=== PATIENT | female | born 1945 | race Caucasian/White ===

== ENCOUNTER 2019-06-27 11:34 | Emergency (ER) | payer MEDICARE, BC ==
[~2019-06-27] VITALS: Ht 160 cm; Wt 65.9 kg
[2019-06-27 12:06] VITALS: Ht 160 cm; Wt 65.9 kg
[2019-06-27] MEDS ORDERED: NORVASC5 MG PO (12:07)
[2019-06-27] MEDS ORDERED: PRAVACHOL40 MG PO (12:08)
[2019-06-27] MEDS ORDERED: PLAVIX75 MG PO (12:08)
[2019-06-27] MEDS ORDERED: FERROUS SULFAT325 MG PO (12:08)
[2019-06-27] MEDS ORDERED: VITAMIN D5000 UNI3 PO (12:09)
[2019-06-27] MEDS ORDERED: ULTRAM50 MG PO (12:34)
[2019-06-27 13:46] VITALS: BP 173/78
== END 2019-06-27 13:49 | disposition home or self-care (01) ==
LOC: D.ER 11:34
DX: S52.502A Unspecified fracture of the lower end of left radius, initial encounter for closed fracture (principal); S00.83XA Contusion of other part of head, initial encounter; W01.10XA Fall on same level from slipping, tripping and stumbling with subsequent striking against unspecified object, initial encounter; Y93.9 Activity, unspecified; Y92.9 Unspecified place or not applicable; M79.602 Pain in left arm; M79.18 Myalgia, other site

== ENCOUNTER 2019-10-25 15:48 | Inpatient (IN) | payer MEDICARE, BC ==
[~2019-10-25] VITALS: Ht 154.9 cm; Wt 55.3 kg
[~2019-10-25 15:48] MED LIST: FERROUS SULFAT325 MG PO; NORVASC5 MG PO; PLAVIX75 MG PO; PRAVACHOL40 MG PO; ULTRAM50 MG PO; VITAMIN D5000 UNI3 PO
[2019-10-25 16:38] VITALS: BP 167/80
[2019-10-25 19:28] LABS: HEMATOCRIT 36.1 % (36.0-48.0); HEMOGLOBIN 11.5 g/dL (12-16); MCH 26.3 pg (26.0-34.0); MCHC 31.9 g/dL (31.0-37.0); MCV 82.4 fL (80.0-100.0); PLATELET COUNT 315 10x3/uL (130-400); RBC 4.38 10x6/uL (4.00-5.40); RDW 20.5 % (11.5-14.5); WBC 24.4 10x3/uL (4.8-10.8)
[2019-10-25 19:33] LABS: APTT 46.4 SECONDS (22.8-39.4); INR 1.33 (0.85-1.17); PROTIME 16.4 SECONDS (11.6-15.0)
[2019-10-25 19:34] LABS: MAGNESIUM - SERUM 1.8 mg/dL (1.8-2.4); PHOSPHOROUS 3.9 mg/dL (2.5-4.9)
[2019-10-25 19:37] LABS: ALBUMIN 2.8 g/dL (3.4-5.0); ANION GAP 10.6 mmol/L (8-16); BILIRUBIN - TOTAL 0.54 mg/dL (0.2-1.3); CALCIUM 9.5 mg/dL (8.5-10.1); CARBON DIOXIDE 27.4 mmol/L (21.0-32.0); CREATININE - SERUM 1.1 mg/dL (0.6-1.3); PROTEIN - SERUM 6.6 g/dL (6.4-8.2)
[2019-10-25 20:00] VITALS: BP 113/59
[2019-10-25 21:35] LABS: LYMPHOCYTES 6 % (15-50); MONOCYTES 5 % (2-11); NEUTROPHILS 89 % (40-80); PLATELET ESTIMATE NORMAL
[2019-10-26] VITALS: BP 156/66
[2019-10-26 04:00] VITALS: BP 103/54; BP 169/71
[2019-10-26 06:46] LABS: BASOPHILS 0.9 % (0-2); EOSINOPHILS 0.7 % (0-7); HEMATOCRIT 33.4 % (36.0-48.0); HEMOGLOBIN 10.6 g/dL (12-16); IMMATURE GRANULOCYTES 0.6 % (0-5); MCH 26.2 pg (26.0-34.0); MCHC 31.7 g/dL (31.0-37.0); MCV 82.7 fL (80.0-100.0); MEAN PLATELET VOLUME 10.4 fL (7.4-10.4); MONOCYTES 4.6 % (2-11); NEUTROPHILS 88.2 % (40-80); PLATELET COUNT 282 10x3/uL (130-400); RBC 4.04 10x6/uL (4.00-5.40); RDW 20.2 % (11.5-14.5)
[2019-10-26 06:47] LABS: WBC 14.9 10x3/uL (4.8-10.8)
[2019-10-26 07:47] LABS: ANION GAP 12.3 mmol/L (8-16); CALCIUM 9.2 mg/dL (8.5-10.1); CARBON DIOXIDE 25.8 mmol/L (21.0-32.0); MAGNESIUM - SERUM 2.1 mg/dL (1.8-2.4); PHOSPHOROUS 3.9 mg/dL (2.5-4.9); POTASSIUM - SERUM 4.1 mmol/L (3.5-5.1)
[2019-10-26 08:59] LABS: T4 THYROXIN - FREE 3.78 ng/dL (0.76-1.46)
[2019-10-26 11:31] LABS: NITRITE POSITIVE (NEGATIVE)
[2019-10-26 11:32] LABS: BILIRUBIN NEGATIVE (NEGATIVE); KETONE SMALL mg/dL (NEGATIVE); UROBILINOGEN NORMAL (NORMAL)
[2019-10-26 11:36] LABS: BACTERIA MODERATE /hpf (NEGATIVE); EPITHELIAL CELLS 0-5 /hpf (0-5); RED CELLS - URINE NONE SEEN /hpf (0-5)
[2019-10-26 13:21] VITALS: BMI 23.0
[2019-10-26 14:17] VITALS: BP 148/64
[2019-10-26 18:09] VITALS: BP 165/69
--- NOTE | 2019-10-26 20:37 | NUR ---
REPORT RECEIVED, WILL CONT POC. ALERT & PLEASENTLY CONFUSED. PT UP IN BED RESTING QUIETLY. NO S/S OF DISTRESS NOTED. RR EVEN AND UNLABORED ON RA. PLACED BED ALARM ON PT, WITNESSED PT ENTANGLING HERSELF IN HER IV LINE IN AN ATTEMPT TO GO TO THE BATHROOM. EDUCATED PT AGAIN ON HOW TO HER CALL LIGHT. PT REPORTS HAVING ONSET OF DEMENTIA AND SAYS SHE GETS CONFUSED A LOT AND FORGETS THINGS. PT FORGOT HOW TO USE CALL LIGHT BEFORE I LEFT THE ROOM. REINFORCED EDUCATION ON HOW TO USE CALL LIGHT THROUGH TEACH BACK METHOD AND HAVING PT DEMONSTRATE HOW TO USE THE CALL LIGHT. PT WAS ABLE TO PUSH CALL LIGHT BUTTON. BED ALARM ON, BED LOCKED AND LOWERED. CURRENTLY DENIES NEEDS. ASSESSMENT COMPLETED AT THIS TIME. WILL CONT TO MONITOR.
[2019-10-26 22:47] VITALS: BP 141/63
[2019-10-27 04:00] VITALS: BP 158/59
[2019-10-27 06:04] LABS: HEMATOCRIT 31.3 % (36.0-48.0); HEMOGLOBIN 9.7 g/dL (12-16); IMMATURE GRANULOCYTES 0.6 % (0-5); MCH 25.5 pg (26.0-34.0); MCV 82.4 fL (80.0-100.0); PLATELET COUNT 324 10x3/uL (130-400); RDW 20.7 % (11.5-14.5); WBC 12.7 10x3/uL (4.8-10.8)
[2019-10-27 06:30] LABS: ANION GAP 11.6 mmol/L (8-16); CALCIUM 8.7 mg/dL (8.5-10.1); CARBON DIOXIDE 25.8 mmol/L (21.0-32.0); CREATININE - SERUM 0.8 mg/dL (0.6-1.3); MAGNESIUM - SERUM 1.8 mg/dL (1.8-2.4)
[2019-10-27 06:31] LABS: POTASSIUM - SERUM 3.4 mmol/L (3.5-5.1)
[2019-10-27 06:48] LABS: EOSINOPHILS 3 % (0-7); LYMPHOCYTES 9 % (15-50); MONOCYTES 4 % (2-11); NEUTROPHILS 84 % (40-80); PLATELET ESTIMATE NORMAL
[2019-10-27 08:13] LABS: T3 - FREE 5.2 pg/mL (2.0-4.4)
[2019-10-27 08:57] VITALS: BP 150/68
[2019-10-27 09:12] LABS: THYROGLOBULIN ANTIBODY 150.8 IU/mL (0.0-0.9)
[2019-10-27 09:12] LABS: THYROGLOBULIN ANTIBODY 137.3 IU/mL (0.0-0.9)
[2019-10-27 11:50] VITALS: BP 165/75
[2019-10-27] MEDS ORDERED: ELIQUIS5 MG PO ×2 (12:49→14:20)
[2019-10-27 15:15] VITALS: Ht 154.9 cm; Wt 55.3 kg
--- NOTE | 2019-10-27 16:08 | MORECARE ---
CASE MANAGEMENT DISCHARGE SUMMARY PATIENT: PATTIE OCASIO UNIT: [id number] ADM DATE: 10/25/19 AGE: 73 : 43 SEX: F ROOM/BED: D.2114 AUTHOR: KEVIN CARRERA PHYSICIAN: REFERRING PHYSICIAN: SUJATA ARMAS MD DATE OF SERVICE: 10/27/19 Discharge Plan Patient Name: PATTIE OCASIO [facility] [facility] 1945 Planned Disposition: Home Anticipated Discharge Date: Discharge Date: 10/27/2019 Expected LOS: Initial Reviewer: [email or web address] Initial Review Date: 10/27/2019 Generated: 10/27/19 5:07 pm DCPIA - Discharge Planning Initial Assessment Updated by [email or web address]: Juju Burton on 10/27/19 4:06 pm * Is the patient Alert and Oriented? No * How many steps to enter\exit or inside your home? 0/0 * PCP Dr. Poe * Pharmacy [facility] * Preadmission Environment Home with Family * ADLs Independent * Equipment Cane * List name and contact numbers for known caregivers / representatives who currently or will assist patient after discharge: Isidro Ocasio - spouse- [phone] * Verbal permission to speak to the caregivers and representatives has been obtained from the patient. Yes * Community resources currently utilized None * Additional services required to return to the preadmission environment? No * Can the patient safely return to the preadmission environment? Yes * Has this patient been hospitalized within the prior 30 days at any hospital? No Patient Name: PATTIE OCASIO Page [id number] at 1608 All edits/amendments must be made on the electronic document DICTATION DATE: 10/27/19 1608 EXTENSION SERVICE SPECIALIST: UMM 10/27/19 1608 RPT#: [id number] DC DATE:10/27/19 STATUS: DIS IN [facility] [address] [place] [address] END OF REPORT
--- NOTE | 2019-10-27 16:15 | MORECARE ---
CASE MANAGEMENT DISCHARGE SUMMARY PATIENT: PATTIE OCASIO UNIT: [id number] ADM DATE: 10/25/19 AGE: 73 : 43 SEX: F ROOM/BED: D.4992 AUTHOR: DEBI,DOC PHYSICIAN: REFERRING PHYSICIAN: SUJATA ARMAS MD DATE OF SERVICE: 10/27/19 Discharge Plan Patient Name: PATTIE OCASIO Facility: [facility]:[place] : 1945 Planned Disposition: Home Anticipated Discharge Date: Discharge Date: 10/27/2019 Expected LOS: Initial Reviewer: [email or web address] Initial Review Date: 10/27/2019 Generated: 10/27/19 5:14 pm Comments DCP- Discharge Planning Updated by [email or web address]: Juju Burton on 10/27/19 3:[address] Patient Name: PATTIE OCASIO Admission Status: Elective Accout number: [id number] Admission Date: 10-25-2019 : 1945 Admission Diagnosis: Attending: SUJATA ARMAS Current LOS: 2 Anticipated DC Date: Planned Disposition: Home Primary Insurance: MEDICARE A & B Discharge Planning Comments: CM met with patient and her spouse to discuss discharge planning/needs. Patient has confusion at times and answers most questions. She lives with her and their adult grand son. States she is independent with her care, however her states he is going to begin helping her with setting up her medicine. I informed him that I can ask home health to come by and a nurse can help with medication management and he declines. Declination for home health signed by . I informed him if he changed his mind to call Dr. Poe and they could set up home health for them. He states she has a cane, but they are going to get a walker. I offered to get the walker for them and insurance would pay for it. He declines, states "we will just pick one up at [facility] Their physical address is [address] [place] [address]. [address] patient home on discharge and feels this is a safe discharge. Home today. Implementation Services Analyst: Juju Burton DCPIA - Discharge Planning Initial Assessment Updated by [email or web address]: Juju Burton on 10/27/19 4:06 pm * Is the patient Alert and Oriented? No * How many steps to enter\\exit or inside your home? 0/0 * PCP Dr. Poe * [facility] [address] * Preadmission Environment Home with Family * ADLs Independent * Equipment Cane * List name and contact numbers for known caregivers / representatives who currently or will assist patient after discharge: Isidro Ocasio - spouse- [phone] * Verbal permission to speak to the caregivers and representatives has been obtained from the patient. Yes * Community resources currently utilized None * Additional services required to return to the preadmission environment? No * Can the patient safely return to the preadmission environment? Yes * Has this patient been hospitalized within the prior 30 days at any hospital? No Coverage Notice Reviewer: [id number] Laura Burton Notice Issued Date-Time: 10/27/2019 16:10 Notice Type: Patient Choice Letter Notice Delivered To: Family Member Relationship to Patient: Spouse Budget Coordinator Name: Isidro Delivery Method: HAND - Hand Delivered Lorie Days: Prior Verbal Notification: Recipient Understood Notice: Yes Recipient Signature: Yes Med Rec Note Co-signed by Attending: Coverage Notice Comment: Declines HHS Last DP export: 10/27/19 3:08 p Patient Name: PATTIE OCASIO Page [id number] at 1615 All edits/amendments must be made on the electronic document DICTATION DATE: 10/27/191613 SUBWAY CAR REPAIRER: UMM 10/27/19 161 RPT#: [id number] DC DATE:10/27/19 STATUS: DIS IN [facility] [address] [place] [address] END OF REPORT
--- NOTE | 2019-10-28 14:47 | MORECARE ---
CASE MANAGEMENT DISCHARGE SUMMARY PATIENT: PATTIE OCASIO UNIT: [id number] ADM DATE: 10/25/19 AGE: 73 : 43 SEX: F ROOM/BED: D.0042 AUTHOR: DEBI,DOC PHYSICIAN: REFERRING PHYSICIAN: SUJATA ARMAS MD DATE OF SERVICE: 10/28/19 Discharge Plan Patient Name: PATTIE OCASIO Facility: [facility]:[place] : 1945 Planned Disposition: Home Anticipated Discharge Date: Discharge Date: 10/27/2019 Expected LOS: 0 Initial Reviewer: [email or web address] Initial Review Date: 10/27/2019 Generated: 10/28/19 3:47 pm Comments DCP- Discharge Planning Updated by [email or web address]: Juju Burton on 10/27/19 3:[address] Patient Name: PATTIE OCASIO Admission Status: Elective Accout number: [id number] Admission Date: 10-25-2019 : 1945 Admission Diagnosis: Attending: SUJATA ARMAS Current LOS: 2 Anticipated DC Date: Planned Disposition: Home Primary Insurance: MEDICARE A & B Discharge Planning Comments: CM met with patient and her spouse to discuss discharge planning/needs. Patient has confusion at times and answers most questions. She lives with her and their adult grand son. States she is independent with her care, however her states he is going to begin helping her with setting up her medicine. I informed him that I can ask home health to come by and a nurse can help with medication management and he declines. Declination for home health signed by . I informed him if he changed his mind to call Dr. Poe and they could set up home health for them. He states she has a cane, but they are going to get a walker. I offered to get the walker for them and insurance would pay for it. He declines, states "we will just pick one up at [facility] Their physical address is [address] [place] [address]. He will drive patient home on discharge and feels this is a safe discharge. Home today. Box Office Agent: Juju Burton DCPIA - Discharge Planning Initial Assessment Updated by [email or web address]: Juju Burton on 10/27/19 4:06 pm * Is the patient Alert and Oriented? No * How many steps to enter\\exit or inside your home? 0/0 * PCP Dr. Poe * [facility] [address] * Preadmission Environment Home with Family * ADLs Independent * Equipment Cane * List name and contact numbers for known caregivers / representatives who currently or will assist patient after discharge: Isidro Ocasio - spouse- [phone] * Verbal permission to speak to the caregivers and representatives has been obtained from the patient. Yes * Community resources currently utilized None * Additional services required to return to the preadmission environment? No * Can the patient safely return to the preadmission environment? Yes * Has this patient been hospitalized within the prior 30 days at any hospital? No Coverage Notice Reviewer: [email or web address] Laura Burton Notice Issued Date-Time: 10/27/2019 16:10 Notice Type: Patient Choice Letter Notice Delivered To: Family Member Relationship to Patient: Spouse [employer] Assembly Line Worker Name: Isidro Delivery Method: HAND - Hand Delivered Lorie Days: Prior Verbal Notification: Recipient Understood Notice: Yes Recipient Signature: Yes Med Rec Note Co-signed by Attending: Coverage Notice Comment: Declines HHS Last DP export: 10/27/19 3:15 p Patient Name: PATTIE OCASIO Page [id number] at 1447 All edits/amendments must be made on the electronic document DICTATION DATE: 10/28/197 CANNED FOOD RECONDITIONING INSPECTOR: UMM 10/28/19 1447 RPT#: [id number] DC DATE:10/27/19 STATUS: DIS IN [facility] [address] [place] [address] END OF REPORT
== END 2019-10-27 15:01 | disposition home or self-care (01) | DRG 299 ==
LOC: D.M2 15:48
PROVIDERS: Family Medicine; ADMIT Family Medicine; ATTEND Family Medicine
DX: I82.402 Acute embolism and thrombosis of unspecified deep veins of left lower extremity (principal); G93.41 Metabolic encephalopathy; I26.99 Other pulmonary embolism without acute cor pulmonale; I71.01 Dissection of thoracic aorta; R65.10 Systemic inflammatory response syndrome (SIRS) of non-infectious origin without acute organ dysfunction; I10 Essential (primary) hypertension; E78.5 Hyperlipidemia, unspecified; I73.9 Peripheral vascular disease, unspecified; R00.0 Tachycardia, unspecified; E06.9 Thyroiditis, unspecified

== ENCOUNTER 2020-06-20 08:43 | Day surgery (SDC) | payer MEDICARE, OTHER ==
--- NOTE | 2020-06-19 14:10 | NUR ---
ATTEMPTED TO CONFIRM PT APPT FOR 06/20/20...NO ANSWER
[~2020-06-20] VITALS: Ht 154.9 cm; Wt 58.6 kg
[~2020-06-20 08:43] MED LIST changes: +ELIQUIS5 MG PO
[2020-06-20 09:12] LABS: ANION GAP 10.6 mmol/L (8-16); CALCIUM 9.4 mg/dL (8.5-10.1); CARBON DIOXIDE 31.5 mmol/L (21.0-32.0); CREATININE - SERUM 0.9 mg/dL (0.6-1.3); POTASSIUM - SERUM 4.1 mmol/L (3.5-5.1)
[2020-06-20 09:13] LABS: INR 1.1 (0.85-1.17); PROTIME 13.2 SECONDS (11.6-15.0)
[2020-06-20 09:14] LABS: APTT 36.7 SECONDS (22.8-39.4)
[2020-06-20 10:09] LABS: BASOPHILS 2.9 % (0-2); EOSINOPHILS 2.6 % (0-7); HEMATOCRIT 45.2 % (36.0-48.0); HEMOGLOBIN 14.1 g/dL (12-16); IMMATURE GRANULOCYTES 1.1 % (0-5); LYMPHOCYTE ABS# 1.01 10x3/uL (1.18-3.74); LYMPHOCYTES 6.9 % (15-50); MCH 27.6 pg (26.0-34.0); MCHC 31.2 g/dL (31.0-37.0); MCV 88.6 fL (80.0-100.0); MEAN PLATELET VOLUME 10.4 fL (7.4-10.4); MONOCYTES 2.4 % (2-11); NEUTROPHIL ABS# 12.32 10x3/uL (1.56-6.13); NEUTROPHILS 84.1 % (40-80); RDW 23.3 % (11.5-14.5); WBC 14.6 10x3/uL (4.8-10.8)
[2020-06-20] MEDS ORDERED: XARELTO10 MG PO (10:09)
[2020-06-20 10:10] LABS: PLATELET COUNT 637 10x3/uL (130-400)
[2020-06-20] MEDS ORDERED: LOVENOX60 MG/0.6 SC (10:11)
[2020-06-20] MEDS ORDERED: FOLIC ACID1 MG PO (10:12)
[2020-06-20 10:27] VITALS: BP 171/69; Ht 154.9 cm; Wt 58.6 kg
[2020-06-20] MEDS ORDERED: SYNTHROID88 MCG PO (10:33)
--- NOTE | 2020-06-20 15:23 | NUR ---
1415 IV REMOVED AND PT ASSISTED TO BATHROOM. 1500 ASSISTED WITH GETTING DRESSED. SPOT ON DRESSING NOTED. INSTRUCTIONS GIVEN
== END 2020-06-20 15:15 | disposition home or self-care (01) ==
LOC: D.SP 08:43 → D.CT 09:00 → D.SP 15:15
PROVIDERS: Radiology Vascular & Interventional Radiology; ATTEND Internal Medicine Hematology & Oncology
DX: D64.9 Anemia, unspecified (principal); D72.829 Elevated white blood cell count, unspecified